=== PATIENT | female | born 1990 | race Caucasian/White ===

== ENCOUNTER 2016-12-16 17:58 | Emergency (ER) | payer OTHER ==
[2016-12-16 18:15] VITALS: BP 114/73; PULSE 81; TEMP 98.4; BMI 20.1
--- NOTE | 2016-12-16 18:47 | PDOC ---
History of Present Illness - General Chief Complaint: Pain Stated Complaint: LT ARM PAIN Time Seen by Provider: 12/16/16 18:21 History Source: Patient - History of Present Illness Timing/Duration: other Associated Symptoms: denies: fever/chills Past History - Past Medical History Allergies/Adverse Reactions: Allergies Allergy/AdvReac Type Severity Reaction Status Date / Time No Known Allergies Allergy Verified 12/16/16 18:10 Home Medications: Ambulatory Orders NK [No Known Home Medication] 10/22/16 Asthma: No Cancer: No Cardiac Disorders: No Diabetes: No HTN: No Seizures: No Thyroid Disease: No Other medical history: DENIES. - Immunization History Immunization Up to Date: No - Psycho/Social/Smoking Cessation Hx Anxiety: No Suicidal Ideation: No Smoking History: Never smoked Hx Alcohol Use: No Drug/Substance Use Hx: No Hx Substance Use Treatment: No Review of Systems - Review of Systems Constitutional: No: Fever *Physical Exam - Vital Signs Last Vital Signs Temp Pulse Resp BP Pulse Ox 98.4 F 81 19 114/73 98 12/16/16 18:10 12/16/16 18:10 12/16/16 18:10 12/16/16 18:10 12/16/16 18:10 - Physical Exam General Appearance: Yes: Appropriately Dressed. No: Apparent Distress HEENT: positive: Normal Voice Neck: positive: Supple Respiratory/Chest: negative: Respiratory Distress Extremity: positive: Other (fb c/w implanon to L arm w/ ttp to site, no redness or swelling) Integumentary: positive: Dry, Warm Neurologic: positive: Fully Oriented, Alert, Normal Mood/Affect Medical Decision Making - Medical Decision Making 12/16/16 18:47 26 yo F, status post implement to left arm 2 years ago at [facility], now here for removal secondary to arm pain to site of control. No swelling , redness, fever or chills. Patient well-appearing with palpable foreign body to left arm consistent with implanon. Has ttp to site w/ no s/o infxn. Will discharge to f/u with heater engineer helper for further eval and possible removal of control 12/16/16 18:50 *DC/Admit/Observation/Transfer Diagnosis at time of Disposition: Arm pain Qualifiers: Laterality: left Qualified Code(s): M79.602 - Pain in left arm - Discharge Dispostion Disposition: HOME Condition at time of disposition: Good - Patient Instructions Additional Instructions: Please follow with your COMMUNICATION ARTS LECTURER for further evaluation
== END 2016-12-16 18:52 | disposition home or self-care (01) ==
LOC: JERFT 17:58
DX: M79.602 Pain in left arm (principal)
CPT/HCPCS: 99281-25

== ENCOUNTER 2016-12-28 19:09 | Emergency (ER) | payer OTHER ==
[2016-12-28 19:17] VITALS: BP 107/64; PULSE 70; TEMP 98.4; BMI 19.9
[2016-12-28] MEDS ORDERED: SODIUM CHLORIDE 1,000 ML IV STA (20:11)
--- NOTE | 2016-12-28 20:11 | PDOC ---
History of Present Illness - General Chief Complaint: Nausea/Vomiting Stated Complaint: NAUSEA/VOMITING Time Seen by Provider: 12/28/16 19:52 History Source: Patient Exam Limitations: No Limitations - History of Present Illness Initial Comments: CHIEF COMPLAINT: 26 y/o afebrile female with no significant PMH c/o nausea and vomiting for the past 3 days. HISTORY OF PRESENT ILLNESS: She also admits to fever for the first 2 days, which has resolved today. She also has a headache, which she states has gotten worse the more she's vomited. She has taken tylenol, ibuprofen and excedrin for her headache with little relief. She denies neck pain, changes in vision/ hearing, cough, runny nose, CP, SOB, abd pain, back pain, hematuria, dysuria. She did receive the flu vaccine this year. Vital signs on arrival are within normal limits. REVIEW OF SYSTEMS: GENERAL/CONSTITUTIONAL: +fever - resolved. No weakness. No weight change. HEAD, EYES, EARS, NOSE AND THROAT: No change in vision. No ear pain or discharge. No sore throat. CARDIOVASCULAR: No chest pain or shortness of breath. RESPIRATORY: No cough, wheezing, or hemoptysis. GASTROINTESTINAL: +nausea and vomiting. No abd pain, diarrhea, constipation. GENITOURINARY: No dysuria, frequency, or change in urination. MUSCULOSKELETAL: No joint or muscle swelling or pain. No neck or back pain. SKIN: No rash or easy bruising. NEUROLOGIC: +headache. No vertigo, loss of consciousness, or loss of sensation. PHYSICAL EXAM: GENERAL: The patient is awake, alert, and fully oriented, in no acute distress. SHe is non toxic but ill appearing. HEAD: Normal with no signs of trauma. ENT: Pupils equal, round and reactive to light, extraocular movements intact, sclera anicteric, conjunctiva clear. Neck supple. Eyes sunken in. Mucous membranes moist. LUNGS: Clear to auscultation bilaterally. Normal excursion. No respiratory distress or use of accessory muscles. CV: RRR, S1/S2, no MRG. Cap refill < 2 sec. ABDOMEN: Soft, non-distended, non-tender even to deep palpation, no hepatomegaly or splenomegaly, no masses. EXTREMITIES: Normal range of motion, no edema. NEUROLOGICAL: Normal speech, normal gait. CN II-XII grossly intact. PSYCH: Normal mood, normal affect. SKIN: Warm, dry, normal turgor, no rashes or lesions noted. Past History - Past Medical History Allergies/Adverse Reactions: Allergies Allergy/AdvReac Type Severity Reaction Status Date / Time No Known Allergies Allergy Verified 12/28/16 19:14 Home Medications: Ambulatory Orders Ondansetron [Zofran Odt -] 4 mg SL TID #8 od.tablet 12/28/16 Asthma: No Cancer: No Cardiac Disorders: No Diabetes: No HTN: No Seizures: No Thyroid Disease: No - Immunization History Immunization Up to Date: No - Psycho/Social/Smoking Cessation Hx Anxiety: No Suicidal Ideation: No Smoking History: Never smoked Number of Cigarettes Smoked Daily: 0 Information on smoking cessation initiated: No Hx Alcohol Use: No Drug/Substance Use Hx: No Hx Substance Use Treatment: No *Physical Exam - Vital Signs Last Vital Signs Temp Pulse Resp BP Pulse Ox 98.4 F 70 12 107/64 98 12/28/16 19:15 12/28/16 19:15 12/28/16 19:15 12/28/16 19:15 12/28/16 19:15 Medical Decision Making - Medical Decision Making A/P: 26 y/o female with GI virus. Headache most likely secondary to dehydration. Plan is as follows: 1. IV fluids 2. UA/hcg hcg - negative The patient states she feels much better with decrease in headache since getting fluids and nausea is gone. Will d/c to home with rx for zofran. Suggested she take tomorrow off and rehydrate. Instructed her to f/u with her PCP within 1 week and return to the ER with any worsening or concerning symptoms. The patient verbalizes understanding of all instructions, has no further questions and is awaiting discharge. *DC/Admit/Observation/Transfer Diagnosis at time of Disposition: Nausea and vomiting Qualifiers: Vomiting type: unspecified Vomiting Intractability: non-intractable Qualified Code(s): R11.2 - Nausea with vomiting, unspecified - Discharge Dispostion Disposition: HOME Condition at time of disposition: Improved - Prescriptions Prescriptions: Ondansetron [Zofran Odt -] 4 mg SL TID #8 od.tablet - Referrals Referrals: Antonietta Menendez [Primary Care Provider] - Call tomorrow - Patient Instructions Printed Discharge Instructions: DI for Viral Gastroenteritis -- Adult, Gastroenteritis Diet Additional Instructions: Discharge Instructions: -Take zofran as directed if needed for nausea/vomiting -Get lots of rest and drink plenty of fluids -Follow up with your doctor within 1 week if no improvement in symptoms -Return to the ER with any worsening or concerning symptoms. - Post Discharge Activity Work/School Note: Back to Work
[2016-12-28 20:23] LABS: URINE APPEARANCE SLCLOUDY; URINE BILIRUBIN NEGATIVE (NEGATIVE); URINE BLOOD NEGATIVE (NEGATIVE); URINE COLOR YELLOW; URINE GLUCOSE (UA) NEGATIVE (NEGATIVE); URINE KETONE 1+ (NEGATIVE); URINE LEUK ESTERASE NEGATIVE (NEGATIVE); URINE NITRITE NEGATIVE (NEGATIVE); URINE PROTEIN NEGATIVE (NEGATIVE); URINE UROBILINOGEN 2.0 E.U/dl E.U./dl (0.2-1.0)
[2016-12-28] MEDS ORDERED: ONDANSETRON 4 MG/2 ML VIAL IVPUSH ONE (20:54)
[2016-12-28] MEDS ORDERED: FAMOTIDINE 20 MG/50 ML IVPB 50 ML IVPB ONE ×2 (20:54→21:03)
[2016-12-28] MEDS ORDERED: ONDANSETRON *ODT* 4 MG TABLET ONE (21:03)
== END 2016-12-28 22:25 | disposition home or self-care (01) ==
LOC: JERFT 19:09
PROC: 3E033GC Introduction of Other Therapeutic Substance into Peripheral Vein, Percutaneous Approach (ICD-10-PCS; principal; 2016-12-28)
PROC: 3E0337Z Introduction of Electrolytic and Water Balance Substance into Peripheral Vein, Percutaneous Approach (ICD-10-PCS; 2016-12-28)
DX: R11.2 Nausea with vomiting, unspecified (principal)
CPT/HCPCS: 81003; 84703; 96361; 96365; 96375; 99281-25

== ENCOUNTER 2016-12-30 02:14 | Emergency (ER) | payer OTHER ==
[2016-12-30 02:36] VITALS: BP 106/56; PULSE 78; TEMP 98.4; BMI 20.1
[2016-12-30] MEDS ORDERED: SODIUM CHLORIDE 1,000 ML IV STA (03:35)
[2016-12-30] MEDS ORDERED: METOCLOPRAMIDE HCL INJECTION 10 MG/2 ML VIAL IVPB ONE (03:35)
[2016-12-30] MEDS ORDERED: morphine CARPU-JECT 4 MG/1 ML DISP.SYRIN IVPUSH ONE (03:35)
--- NOTE | 2016-12-30 03:36 | PDOC ---
History of Present Illness - General Chief Complaint: Nausea/Vomiting Stated Complaint: VOMITING Time Seen by Provider: 12/30/16 03:03 History Source: Patient Exam Limitations: No Limitations - History of Present Illness Initial Comments: 12/30/16 04:11 26yo Female patient presents to ED c/o persistent headache with nausea and vomiting. Patient was last seen in this ED 12-28-2016 and d/c'd home with zofran. Patient report pain has intensified and she is unable to take Zofran because of vomiting. She denies head injury, fall, trauma, , fever, CP, Abd pain, Diarrhea, or any other complaints at this time. Timing/Duration: reports: 1 week Severity: Yes: moderate Associated Symptoms: reports: nausea/vomiting, other (Headache). denies: denies symptoms, confusion, fatigue, fever/chills, insomnia, loss of consciousness, muscle spasms, numbness in legs/feet, paresthesia, ringing in ears, seizures, sleepy, slurred speech, tingling in legs/feet, trouble walking, vision changes, weakness Past History - Travel Traveled outside of the country in the last 30 days: No Close contact w/someone who was outside of country & ill: No - Past Medical History Allergies/Adverse Reactions: Allergies Allergy/AdvReac Type Severity Reaction Status Date / Time No Known Allergies Allergy Verified 12/30/16 02:29 Home Medications: Ambulatory Orders Ondansetron [Zofran Odt -] 4 mg SL TID #8 od.tablet 12/28/16 Butalbit/Acetamin/Caff/Codeine [Fioricet-Cod 84-151-82-30 Cap] 1 - 2 cap PO Q6H PRN #32 capsule MDD 6 CAP 12/30/16 Asthma: No Cancer: No Cardiac Disorders: No Diabetes: No HTN: No Seizures: No Thyroid Disease: No Other medical history: denies - Immunization History Immunization Up to Date: No - Psycho/Social/Smoking Cessation Hx Anxiety: No Suicidal Ideation: No Smoking History: Never smoked Number of Cigarettes Smoked Daily: 0 Hx Alcohol Use: No Drug/Substance Use Hx: No Hx Substance Use Treatment: No Neuro Specific PMHX - Complaint Specific PMHX Glaucoma: No Herniated Disk: No Laminectomy: No Migraine: No Multiple Sclerosis: No Neuropathy: No TIA: No Review of Systems - Review of Systems Able to Perform ROS?: Yes Is the patient limited Polish proficient: No Constitutional: No: Chills, Fever HEENTM: No: Blurred Vision, Double Vision, Nose Congestion, Difficulty Swallowing Respiratory: No: Cough, Orthopnea, Shortness of Breath, Stridor, Wheezing Cardiac (ROS): No: Chest Pain, Lightheadedness, Palpitations, Syncope, Chest Tightness ABD/GI: Yes: Nausea, Vomiting. No: Constipated, Diarrhea, Poor Appetite, Poor Fluid Intake, Abdominal cramping : No: Burning, Dysuria, Discharge, Frequency, Flank Pain, Hematuria, Pain, Urgency Musculoskeletal: No: Back Pain, Joint Pain, Muscle Weakness, Neck Pain Integumentary: No: Bruising, Erythema, Rash Neurological: Yes: Headache. No: Numbness, Paresthesia, Seizure, Tingling, Tremors, Weakness, Unsteady Gait, Ataxia, Dizziness All Other Systems: Reviewed and Negative *Physical Exam - Vital Signs Last Vital Signs Temp Pulse Resp BP Pulse Ox 98.4 F 78 18 106/56 99 12/30/16 02:30 12/30/16 02:30 12/30/16 02:30 12/30/16 02:30 12/30/16 02:30 - Physical Exam General Appearance: Yes: Nourished, Appropriately Dressed, Mild Distress. No: Apparent Distress, Moderate Distress, Severe Distress HEENT: positive: EOMI, RAMIRO, Normal ENT Inspection, Normal Voice, Symmetrical, TMs Normal, Pharynx Normal. negative: Tonsillar Exudate, Tonsillar Erythema, Nasal Congestion, Rhinorrhea, TM Bulging, TM Dull, TM Erythema Neck: positive: Trachea midline, Supple. negative: Decreased range of motion, Stridor, Lymphadenopathy (R), Lymphadenopathy (L) Respiratory/Chest: positive: Lungs Clear, Normal Breath Sounds. negative: Respiratory Distress, Accessory Muscle Use, Labored Respiration, Rapid RR, Stridor, Wheezing Cardiovascular: positive: Regular Rhythm, Regular Rate Gastrointestinal/Abdominal: positive: Normal Bowel Sounds, Soft. negative: Distended, Guarding, Rebound, Tenderness Musculoskeletal: positive: Normal Inspection. negative: CVA Tenderness Extremity: positive: Normal Capillary Refill, Normal Inspection, Normal Range of Motion. negative: Tender, Pedal Edema, Swelling Integumentary: positive: Normal Color, Dry, Warm. negative: Rash, Swelling Neurologic: positive: detail manager II-XII NML intact, Fully Oriented, Alert, Normal Mood/ Affect, Normal Response, Motor Strength 5/5 *DC/Admit/Observation/Transfer Diagnosis at time of Disposition: Migraine Qualifiers: Migraine type: without aura Status migrainosus presence: without status migrainosus Intractability: not intractable Qualified Code(s): G43.009 - Migraine without aura, not intractable, without status migrainosus - Discharge Dispostion Disposition: HOME Condition at time of disposition: Improved Admit: No - Prescriptions Prescriptions: Butalbit/Acetamin/Caff/Codeine [Fioricet-Cod 65-236-75-30 Cap] 1 - 2 cap PO Q6H PRN #32 capsule MDD 6 CAP PRN Reason: MIGRAINES - Patient Instructions Printed Discharge Instructions: Migraine -- Adult Additional Instructions: FOLLOW UP WITH YOUR PRIMARY CARE PROVIDER. CALL TO SCHEDULE APPOINTMENT. TAKE MEDICATIONS PRESCRIBED. DRINK LOTS OF WATER AND REST. DO NOT DRIVE, DRINK ALCOHOL, OR OPERATE HEAVY MACHINERY WHILE TAKING FIORICET. CONTINUE PREVIOUS MEDICATIONS PRESCRIBED. Print Language: HUNGARIAN - Post Discharge Activity Work/School Note: Back to Work
[2016-12-30] MEDS ORDERED: morphine CARPU-JECT 4 MG/1 ML DISP.SYRIN ONE (03:53)
[2016-12-30] MEDS ORDERED: METOCLOPRAMIDE HCL INJECTION 10 MG/2 ML VIAL ONE (03:53)
--- NOTE | 2016-12-30 04:15 | PDOC ---
*Physical Exam - Vital Signs Last Vital Signs Temp Pulse Resp BP Pulse Ox 98.4 F 78 18 106/56 99 12/30/16 02:30 12/30/16 02:30 12/30/16 02:30 12/30/16 02:30 12/30/16 02:30 ED Treatment Course - Medications Given in the ED: ED Medications Discontinued Medications Generic Name Dose Route Start Last Admin Trade Name Freq PRN Reason Stop Dose Admin Metoclopramide HCl 10 mg 12/30/16 03:35 12/30/16 03:55 Reglan Injection - IVPB 12/30/16 03:36 10 mg ONCE ONE Administration Morphine Sulfate 4 mg 12/30/16 03:35 12/30/16 03:59 Morphine Injection - IVPUSH 12/30/16 03:36 4 mg ONCE ONE Administration Medical Decision Making - Medical Decision Making 12/30/16 04:14 agree with care from REGISTERED PUBLIC SURVEYOR Qamar *DC/Admit/Observation/Transfer Diagnosis at time of Disposition: Migraine - Discharge Dispostion Disposition: HOME Condition at time of disposition: Improved - Prescriptions Prescriptions: Butalbit/Acetamin/Caff/Codeine [Fioricet-Cod 36-430-56-30 Cap] 1 - 2 cap PO Q6H PRN #32 capsule MDD 6 CAP PRN Reason: MIGRAINES - Referrals Referrals: Antonietta Menendez [Primary Care Provider] - - Patient Instructions Printed Discharge Instructions: Migraine -- Adult Additional Instructions: FOLLOW UP WITH YOUR PRIMARY CARE PROVIDER. CALL TO SCHEDULE APPOINTMENT. TAKE MEDICATIONS PRESCRIBED. DRINK LOTS OF WATER AND REST. DO NOT DRIVE, DRINK ALCOHOL, OR OPERATE HEAVY MACHINERY WHILE TAKING FIORICET. CONTINUE PREVIOUS MEDICATIONS PRESCRIBED. Print Language: LAO - Post Discharge Activity Work/School Note: Back to Work
[2016-12-30 04:20] LABS: URINE APPEARANCE CLEAR; URINE BILIRUBIN NEGATIVE (NEGATIVE); URINE BLOOD NEGATIVE (NEGATIVE); URINE COLOR YELLOW; URINE GLUCOSE (UA) NEGATIVE (NEGATIVE); URINE KETONE NEGATIVE (NEGATIVE); URINE LEUK ESTERASE NEGATIVE (NEGATIVE); URINE NITRITE NEGATIVE (NEGATIVE); URINE PROTEIN NEGATIVE (NEGATIVE); URINE UROBILINOGEN 4.0 E.U/dl E.U./dl (0.2-1.0)
[2016-12-30] MEDS ORDERED: methylPREDNISolone NA SUCC 125 MG/2 ML VIAL IVPB ONE (05:54)
[2016-12-30] MEDS ORDERED: methylPREDNISolone NA SUCC 125 MG/2 ML VIAL ONE (06:01)
[2016-12-30] MEDS ORDERED: ACETAMINOPHEN/CAFFEINE/BUTALBITAL 1 TAB ONE (06:17)
[2016-12-30] MEDS ORDERED: ACETAMINOPHEN/CAFFEINE/BUTALBITAL 1 TAB PO ONE (06:21)
== END 2016-12-30 06:24 | disposition home or self-care (01) ==
LOC: JER 02:14
PROC: 3E033GC Introduction of Other Therapeutic Substance into Peripheral Vein, Percutaneous Approach (ICD-10-PCS; principal; 2016-12-30)
PROC: 3E033NZ Introduction of Analgesics, Hypnotics, Sedatives into Peripheral Vein, Percutaneous Approach (ICD-10-PCS; 2016-12-30)
PROC: 3E0337Z Introduction of Electrolytic and Water Balance Substance into Peripheral Vein, Percutaneous Approach (ICD-10-PCS; 2016-12-30)
DX: G43.009 Migraine without aura, not intractable, without status migrainosus (principal)
CPT/HCPCS: 70450-TC; 81003; 84703; 99281-25

== ENCOUNTER 2017-12-12 17:00 | Emergency (ER) | payer OTHER ==
[2017-12-12 17:13] VITALS: BP 129/63; PULSE 100; TEMP 99.2; BMI 20.5
--- NOTE | 2017-12-12 17:14 | PDOC ---
Rapid Medical Evaluation Time Seen by Provider: 12/12/17 17:09 Medical Evaluation: Allergies Allergy/AdvReac Type Severity Reaction Status Date / Time No Known Allergies Allergy Verified 12/12/17 17:09 12/12/17 17:09 The patient presents with a chief complaint of: [LLQ pain, vaginal bleeding. LMP 12/04/17, not normal as per patient. Denies urinary symptoms. H/O cysts, pain is the same. ] I have performed a brief in-person evaluation of this patient. Pertinent physical exam findings: vss, [Lungs clear, RRR, Pain to the LLQ, Pain to the left lower back, No CVA tenderness. ] I have ordered the following: [Labs, Beta HCG, UA, Urine culture, ] The patient will proceed to the ED for further evaluation.
[2017-12-12 17:51] LABS: BASO % 0.3 % (0-2.0); EOS % 0.2 % (0-4.5); HEMATOCRIT 39.6 % (32.4-45.2); HEMOGLOBIN 13.6 GM/dL (10.7-15.3); LYMPH % 18.4 % (8-40); MCH 32.5 pg (25.7-33.7); MCHC 34.4 g/dl (32.0-36.0); MEAN CELL VOLUME 94.5 fl (80-96); MEAN PLT VOLUME 8.3 fl (7.5-11.1); MONO % 5.5 % (3.8-10.2); NEUT % 75.6 % (42.8-82.8); PLATELET COUNT 199 K/MM3 (134-434); RBC 4.19 M/mm3 (3.60-5.2); RDW 12.6 % (11.6-15.6); WHITE BLOOD COUNT 8.7 K/mm3 (4.0-10.0)
[2017-12-12 17:53] LABS: URINE APPEARANCE CLEAR; URINE BILIRUBIN NEGATIVE (NEGATIVE); URINE BLOOD 1+ (NEGATIVE); URINE COLOR YELLOW; URINE GLUCOSE (UA) NEGATIVE (NEGATIVE); URINE KETONE NEGATIVE (NEGATIVE); URINE LEUK ESTERASE NEGATIVE (NEGATIVE); URINE NITRITE NEGATIVE (NEGATIVE); URINE PROTEIN NEGATIVE (NEGATIVE); URINE UROBILINOGEN NEGATIVE mg/dL (0.2-1.0)
[2017-12-12 18:03] LABS: EPI CELLS RARE /HPF (FEW); URINE MUCUS RARE
[2017-12-12 18:12] LABS: ALBUMIN 4.2 g/dl (3.4-5.0); ANION GAP 9 (8-16); BILIRUBIN,TOTAL 1.6 mg/dL (0.2-1.0); BLOOD UREA NITROGEN 12 mg/dL (7-18); CALCIUM 9.3 mg/dL (8.5-10.1); CHLORIDE 99 mmol/L (98-107); CO2 29 mmol/L (21-32); CREATININE 0.6 mg/dL (0.55-1.02); GLUCOSE,RANDOM 86 mg/dL (74-106); POTASSIUM 3.7 mmol/L (3.5-5.1); SGOT/AST 16 U/L (15-37); SGPT/ALT 32 U/L (12-78); SODIUM 137 mmol/L (136-145); TOT PROT 7.9 g/dl (6.4-8.2)
[2017-12-12 18:14] LABS: ALK PHOS 46 U/L (45-117)
== END 2017-12-12 22:07 | disposition left against medical advice (07) ==
LOC: JER 17:00
DX: Z53.21 Procedure and treatment not carried out due to patient leaving prior to being seen by health care provider (principal)
CPT/HCPCS: 36415; 80053; 81003; 81015; 84702; 85025; 87086; 99281-25

== ENCOUNTER 2018-11-28 03:10 | Inpatient (IN) | payer OTHER ==
[2018-11-28] MEDS ORDERED: DEXTROSE 5%-LACTATED RINGERS 1,000 ML IV SCH (04:15)
[2018-11-28 04:27] LABS: BASO % 0.2 % (0-2.0); EOS % 0.2 % (0-4.5); HEMATOCRIT 34.4 % (32.4-45.2); HEMOGLOBIN 12.3 GM/dL (10.7-15.3); LYMPH % 35.9 % (8-40); MCH 33.8 pg (25.7-33.7); MCHC 35.7 g/dl (32.0-36.0); MEAN CELL VOLUME 94.6 fl (80-96); MEAN PLT VOLUME 9.4 fl (7.5-11.1); MONO % 4.4 % (3.8-10.2); NEUT % 59.3 % (42.8-82.8); PLATELET COUNT 162 K/MM3 (134-434); RBC 3.64 M/mm3 (3.60-5.2); WHITE BLOOD COUNT 6.6 K/mm3 (4.0-10.0)
[2018-11-28 04:37] VITALS: BMI 23.2
[2018-11-28 04:40] LABS: INR 0.89 (0.83-1.09); PROTHROMBIN TIME (PATIENT) 10.5 SEC (9.7-13.0)
[2018-11-28 04:43] LABS: ACTIVATED PTT 24.6 SECONDS (25.2-36.5)
[2018-11-28 04:46] LABS: ANION GAP 8 MMOL/L (8-16); BLOOD UREA NITROGEN 10 mg/dL (7-18); CALCIUM 9.1 mg/dL (8.5-10.1); CHLORIDE 104 mmol/L (98-107); CO2 26 mmol/L (21-32); CREATININE 0.8 mg/dL (0.55-1.3); GLUCOSE,RANDOM 122 mg/dL (74-106); POTASSIUM 4.1 mmol/L (3.5-5.1); SODIUM 137 mmol/L (136-145)
[2018-11-28] MEDS ORDERED: BUTORPHANOL TARTRATE 1 MG/ML VIAL ONE (05:25)
[2018-11-28] MEDS ORDERED: PROMETHAZINE HCL 25 MG/1 ML VIAL ONE (05:25)
[2018-11-28] MEDS ORDERED: PROMETHAZINE HCL 25 MG/1 ML VIAL IVPB ONE (05:45)
[2018-11-28] MEDS ORDERED: BUTORPHANOL TARTRATE 2 MG/ML VIAL IVPB ONE (05:45)
--- NOTE | 2018-11-28 06:34 | HP ---
Past Medical History - Admission Chief Complaint: Labor pain History of Present Illness: 28 yo @ 38 weeks gestation, EDC 12/06/18, admitted for labor pain. History Source: Patient Limitations to Obtaining History: No Limitations - Past Medical History ...: 3 ...Para: 2 ...Term: 0 ...: 2 ...Spon : 0 ...Induced : 0 ...Multiple Gestation: 0 ...LMP: 03/01/18 ... Weeks Gestation by Dates: 38.6 ...EDC by Dates: 12/06/18 ...EDC by Sono: 12/06/18 - Past Surgical History Past Surgical History: Yes: None Hx Myomectomy: No Hx Transabdominal Cerclage: No - Smoking History Smoking history: Never smoked Have you smoked in the past 12 months: No Aproximately how many cigarettes per day: 0 - Alcohol/Substance Use Hx Alcohol Use: No - Social History Usual Living Arrangement: Yes: With Significant Other History of Recent Travel: No Home Medications - Allergies Allergies/Adverse Reactions: Allergies Allergy/AdvReac Type Severity Reaction Status Date / Time No Known Allergies Allergy Verified 11/28/18 04:01 - Home Medications Home Medications: Ambulatory Orders Ferrous Sulfate [Iron] 325 mg PO DAILY 09/18/18 Pnv No.95/Ferrous Fum/Folic AC [ Formula] 1 each PO DAILY 09/18/18 Family Disease History - Family Disease History Family History: Unremarkable Review of Systems - Review of Systems Constitutional: reports: No Symptoms Eyes: reports: No Symptoms HENT: reports: No Symptoms Neck: reports: No Symptoms Cardiovascular: reports: No Symptoms Respiratory: reports: No Symptoms Gastrointestinal: reports: No Symptoms Genitourinary: reports: Pain Breasts: reports: No Symptoms Reported Musculoskeletal: reports: No Symptoms Integumentary: reports: No Symptoms Neurological: reports: No Symptoms Endocrine: reports: No Symptoms Hematology/Lymphatic: reports: No Symptoms Psychiatric: reports: No Symptoms Pain Intensity: 7 Physical Exam - Maternity Vital Signs: Vital Signs Temperature 98.6 F 11/28/18 06:00 Pulse Rate 85 11/28/18 06:00 Respiratory Rate 20 11/28/18 06:00 Blood Pressure 118/70 11/28/18 06:00 O2 Sat by Pulse Oximetry (%) Constitutional: Yes: Well Nourished Eyes: Yes: Conjunctiva Clear HENT: Yes: Atraumatic Neck: Yes: Supple Cardiovascular: Yes: Regular Rate and Rhythm Lungs: Clear to auscultation - Abdominal Exam/OB Number of Fetuses: Single Presentation: Vertex - Vaginal Exam/OB Speculum Exam: No Dilatation (cm): 3 Effacement (%): 80 Amniotic Membrane Status: Intact Presentation: Vertex/Position Station: -2 - Physical Exam Musculoskeletal: Yes: WNL Extremities: Yes: WNL ...Motor Strength: WNL Psychiatric: Yes: Alert, Oriented - Labs Lab Results: CBC, BMP 11/28/18 04:15 11/28/18 04:15 Problem List - Problems (1) Pain during labor Code(s): O99.89 - OTH DISEASES AND CONDITIONS COMPL PREG/CHLDBRTH; R52 - PAIN, UNSPECIFIED Assessment/Plan Active labor Admit to L&D Analgesia as needed Anticipate
[2018-11-28] MEDS ORDERED: OXYTOCIN 20 UNITS in 0.9% NS 20 UNIT/1,000 ML INFUS.BAG IV ONE ×2 (07:22→09:23)
[2018-11-28] MEDS ORDERED: LIDOCAINE HCL 1% PRESERVATIVE FREE - 30ML VIAL ONE (07:23)
[2018-11-28] MEDS ORDERED: WITCH HAZEL 50% (TUCKS) 40 PAD/JAR PAD TP PRN (08:03)
[2018-11-28] MEDS ORDERED: BENZOCAINE 28 GM HEMORRHOIDAL OINTMENT TP PRN (08:03)
[2018-11-28] MEDS ORDERED: BISACODYL 10 MG SUPP.RECT RC PRN (08:03)
[2018-11-28] MEDS ORDERED: METHYLERGONOVINE MALEATE 0.2 MG/1 ML AMP IM PRN (08:03)
[2018-11-28] MEDS ORDERED: BENZOCAINE 20% 57 GM BOTTLE TP PRN (08:03)
--- NOTE | 2018-11-28 08:07 | PN ---
Delivery - Delivery Vaginal Delivery: Spontaneous Episiotomy/Laceration: None EBL (cc): 300 Delivery, Single - Feeding Plan Initial Plan: Elected not to breastfeed exclusively throughout hospitalization Remarks - Remarks Remarks: Normal spontaneous vaginal delivery of a live infant boy over intact perineum. Nose / Oropharynx suctioned @ perineum. Cord clamped and cut. Placenta expelled spontaneously intact. Baby handed to nurse. Mother in stable condition
[2018-11-28] MEDS: OXYTOCIN 20 UNITS in 0.9% NS 20 UNIT/1,000 ML INFUS.BAG IV SCH (09:25)
[2018-11-28] MEDS: DEXTROSE 5%-LACTATED RINGERS 1,000 ML IV SCH (09:27)
[2018-11-28] MEDS ORDERED: ACETAMINOPHEN 325 MG TABLET (FP) ONE (09:33)
[2018-11-28] MEDS ORDERED: IBUPROFEN 600 MG TABLET (FP) PO ONE (09:33)
[2018-11-28] MEDS: ACETAMINOPHEN 325 MG TABLET (FP) PO PRN ×3 (09:35→22:14)
[2018-11-28] MEDS: IBUPROFEN 600 MG TABLET (FP) PO PRN ×3 (09:35→22:14)
[2018-11-28] MEDS: PRENATAL VITAMINS W/ FOLIC ACID TABLET (FP) PO SCH (11:00)
[2018-11-28] MEDS: FERROUS SO4 325 MG TABLET (FP) PO SCH ×2 (11:00→22:14)
[2018-11-29] MEDS: IBUPROFEN 600 MG TABLET (FP) PO PRN ×3 (02:14→21:43)
[2018-11-29] MEDS: ACETAMINOPHEN 325 MG TABLET (FP) PO PRN ×3 (02:14→21:44)
[2018-11-29 07:38] LABS: BASO % 0.4 % (0-2.0); EOS % 0.3 % (0-4.5); HEMATOCRIT 33.1 % (32.4-45.2); HEMOGLOBIN 10.9 GM/dL (10.7-15.3); LYMPH % 42.4 % (8-40); MCHC 32.9 g/dl (32.0-36.0); MEAN CELL VOLUME 97.2 fl (80-96); MEAN PLT VOLUME 9.3 fl (7.5-11.1); MONO % 4.2 % (3.8-10.2); NEUT % 52.7 % (42.8-82.8); PLATELET COUNT 146 K/MM3 (134-434); RBC 3.41 M/mm3 (3.60-5.2); RDW 13.1 % (11.6-15.6); WHITE BLOOD COUNT 7.5 K/mm3 (4.0-10.0)
[2018-11-29] MEDS: PRENATAL VITAMINS W/ FOLIC ACID TABLET (FP) PO SCH (09:24)
[2018-11-29] MEDS: FERROUS SO4 325 MG TABLET (FP) PO SCH ×2 (09:24→21:43)
--- NOTE | 2018-11-29 09:37 | PN ---
Post Progress Note - Subjective Subjective: no complains Post Day: 1 Type of Delivery: Vital Signs: Vital Signs Temperature 97.8 F 11/29/18 08:06 Pulse Rate 70 11/29/18 08:06 Respiratory Rate 18 11/29/18 08:06 Blood Pressure 101/16 L 11/29/18 08:06 O2 Sat by Pulse Oximetry (%) 97 11/28/18 08:55 Selected Entries 11/28/18 11/28/18 11/29/18 17:11 20:28 02:00 Blood Pressure 110/78 102/59 L 101/59 L Breast Exam: Yes: Soft, Other (bf). No: Engorged Uterus: Yes: Fundus Firm, Fundus below umbilicus, Non-tender Lochia: Yes: Rubra Lochia, amount: Moderate Extremities: Yes: Calves non-tender Perineum: Yes: Intact Activity: Ambulating - Labs Labs: CBC WBC 7.5 K/mm3 (4.0-10.0) 11/29/18 06:30 RBC 3.41 M/mm3 (3.60-5.2) L 11/29/18 06:30 Hgb 10.9 GM/dL (10.7-15.3) 11/29/18 06:30 Hct 33.1 % (32.4-45.2) 11/29/18 06:30 MCV 97.2 fl (80-96) H 11/29/18 06:30 MCH 32.0 pg (25.7-33.7) 11/29/18 06:30 MCHC 32.9 g/dl (32.0-36.0) 11/29/18 06:30 RDW 13.1 % (11.6-15.6) 11/29/18 06:30 Plt Count 146 K/MM3 (134-434) 11/29/18 06:30 MPV 9.3 fl (7.5-11.1) 11/29/18 06:30 Absolute Neuts (auto) 3.9 K/mm3 (1.5-8.0) 11/29/18 06:30 Neutrophils % 52.7 % (42.8-82.8) 11/29/18 06:30 Lymphocytes % 42.4 % (8-40) H 11/29/18 06:30 Monocytes % 4.2 % (3.8-10.2) 11/29/18 06:30 Eosinophils % 0.3 % (0-4.5) 11/29/18 06:30 Basophils % 0.4 % (0-2.0) 11/29/18 06:30 Nucleated RBC % 0 % (0-0) 11/29/18 06:30 Problem List - Problems (1) Vaginal delivery Code(s): O80 - ENCOUNTER FOR FULL-TERM UNCOMPLICATED DELIVERY (2) Encounter for care after hospital delivery Code(s): Z39.2 - ENCOUNTER FOR ROUTINE FOLLOW-UP Assessment/Plan stable plan ct pp care discharge tomorrow.
[2018-11-29] MEDS ORDERED: FLU VACCINE QUAD 60 MCG/0.5 ML (MDV 18-19) IM ONE (14:00)
[2018-11-29] MEDS ORDERED: DIPHTH,PERTUSS(ACELL),TET 0.5 ML DISP.SYRIN IM ONE (14:00)
[2018-11-29] MEDS: OXYTOCIN 20 UNITS in 0.9% NS 20 UNIT/1,000 ML INFUS.BAG IV SCH (15:11)
[2018-11-29] MEDS: DEXTROSE 5%-LACTATED RINGERS 1,000 ML IV SCH (15:35)
[2018-11-29] MEDS ORDERED: SENNOSIDES/DOCUSATE COMBO (SENNA PLUS) TABLET (UD) PO PRN (22:00)
[2018-11-30] MEDS: ACETAMINOPHEN 325 MG TABLET (FP) PO PRN (03:12)
[2018-11-30] MEDS: IBUPROFEN 600 MG TABLET (FP) PO PRN (03:12)
--- NOTE | 2018-11-30 09:11 | DS ---
Physical Examination Vital Signs: Vital Signs Temperature 98.7 F 11/29/18 20:59 Pulse Rate 73 11/29/18 20:59 Respiratory Rate 20 11/29/18 20:59 Blood Pressure 107/64 11/29/18 20:59 O2 Sat by Pulse Oximetry (%) 97 11/28/18 08:55 Constitutional: Yes: Well Nourished, No Distress, Calm Eyes: Yes: WNL, Conjunctiva Clear, EOM Intact HENT: Yes: WNL, Atraumatic, Normocephalic Neck: Yes: WNL, Supple, Trachea Midline Cardiovascular: Yes: WNL, Regular Rate and Rhythm Respiratory: Yes: WNL, Regular, CTA Bilaterally Gastrointestinal: Yes: WNL, Normal Bowel Sounds Musculoskeletal: Yes: WNL Extremities: Yes: WNL Edema: No Integumentary: Yes: WNL Neurological: Yes: WNL, Alert, Oriented ...Motor Strength: WNL Psychiatric: Yes: WNL Labs: CBC, BMP 11/29/18 06:30 11/28/18 04:15 Discharge Summary Reason For Visit: ADMIT LABOR Current Active Problems Encounter for care after hospital delivery (Acute) Pain during labor (Acute) Procedures: Principal: Condition: Stable - Instructions Diet, Activity, Other Instructions: Regular Diet Disposition: HOME - Home Medications Comprehensive Discharge Medication List: Ambulatory Orders Ferrous Sulfate [Iron] 325 mg PO DAILY 09/18/18 Pnv No.95/Ferrous Fum/Folic AC [ Formula] 1 each PO DAILY 09/18/18
[2018-11-30] MEDS: PRENATAL VITAMINS W/ FOLIC ACID TABLET (FP) PO SCH (09:55)
[2018-11-30] MEDS: FERROUS SO4 325 MG TABLET (FP) PO SCH (09:55)
[2018-11-30] MEDS ORDERED: ACETAMINOPHEN 325 MG TABLET (FP) ONE (12:36)
[2018-11-30 13:28] VITALS: BP 115/80; PULSE 70; TEMP 98.6
== END 2018-11-30 12:10 | disposition home or self-care (01) | DRG 560 ==
LOC: JLDR 03:10 → UNDOADMIN 03:10 → JLDR 03:40 → J3W 10:10
PROVIDERS: ADMIT Obstetrics & Gynecology; ATTEND Obstetrics & Gynecology
PROC: 10E0XZZ Delivery of Products of Conception, External Approach (ICD-10-PCS; principal; 2018-11-28)
DX: O80 Encounter for full-term uncomplicated delivery (principal); Z3A.38 38 weeks gestation of pregnancy; Z37.0 Single live birth
CPT/HCPCS: 36415; 59409; 80048; 85025; 85610; 85730; 86593; 86850; 86900; 86901; 90715

== ENCOUNTER 2019-08-10 15:57 | Emergency (ER) | payer OTHER ==
--- NOTE | 2019-08-10 16:23 | PDOC ---
Rapid Medical Evaluation Medical Evaluation: Allergies Allergy/AdvReac Type Severity Reaction Status Date / Time No Known Allergies Allergy Verified 11/28/18 04:01 I have performed a brief in-person evaluation of this patient. The patient presents with a chief complaint of: c/o L breast pain x 2 days; denies chest pain; is currently breast feeding her 8 month old baby; denies fever, nipple discharge, changes in skin color Pertinent physical exam findings: Breast exam deferred I have ordered the following: Nothing The patient will proceed to the ED for further evaluation. 08/10/19 16:17
[2019-08-10 16:27] VITALS: BP 101/64; PULSE 92; TEMP 99.2; BMI 21.1
[2019-08-10] MEDS ORDERED: ACETAMINOPHEN 325 MG TABLET (FP) PO ONE (17:13)
--- NOTE | 2019-08-10 17:14 | PDOC ---
History of Present Illness - General Chief Complaint: Pain Stated Complaint: LT BREAST PAIN Time Seen by Provider: 08/10/19 16:17 History Source: Patient Exam Limitations: No Limitations Past History - Travel Traveled outside of the country in the last 30 days: No Close contact w/someone who was outside of country & ill: No - Past Medical History Allergies/Adverse Reactions: Allergies Allergy/AdvReac Type Severity Reaction Status Date / Time No Known Allergies Allergy Verified 08/10/19 16:25 Home Medications: Ambulatory Orders Ferrous Sulfate [Iron] 325 mg PO DAILY 09/18/18 Pnv No.95/Ferrous Fum/Folic AC [ Formula] 1 each PO DAILY 09/18/18 Ibuprofen 600 mg PO Q6H PRN #30 tablet 11/30/18 Asthma: Yes Cancer: No Cardiac Disorders: No COPD: No Diabetes: No HTN: No Seizures: No Thyroid Disease: No - Immunization History Immunization Up to Date: No - Psycho Social/Smoking Cessation Hx Smoking History: Never smoked Have you smoked in the past 12 months: No Number of Cigarettes Smoked Daily: 0 Hx Alcohol Use: No Drug/Substance Use Hx: No Substance Use Type: None Hx Substance Use Treatment: No Review of Systems - Review of Systems Able to Perform ROS?: Yes Comments:: 08/10/19 18:56 CONSTITUTIONAL: Absent: fever, chills, diaphoresis, generalized weakness, malaise, loss of appetite HEENT: Absent: rhinorrhea, nasal congestion, throat pain, throat swelling, difficulty swallowing, mouth swelling, ear pain, eye pain, visual Changes CARDIOVASCULAR: Absent: chest pain, loss of consciousness, palpitations, irregular heart rate, peripheral edema RESPIRATORY: Absent: cough, shortness of breath, dyspnea with exertion, orthopnea, wheezing, stridor, hemoptysis GASTROINTESTINAL: Absent: abdominal pain, abdominal distension, nausea, vomiting, diarrhea, constipation, melena, hematochezia GENITOURINARY: Absent: dysuria, frequency, urgency, hesitancy, hematuria, flank pain, genital pain MUSCULOSKELETAL: Absent: myalgia, arthralgia, joint swelling SKIN: Present: L breast lump Absent: rash, itching, pallor HEMATOLOGIC/IMMUNOLOGIC: Absent: easy bleeding, easy bruising, lymphadenopathy, frequent infections ENDOCRINE: Absent: unexplained weight gain, unexplained weight loss, heat intolerance, cold intolerance NEUROLOGIC: Absent: headache, focal weakness or paresthesias, dizziness, unsteady gait, seizure, mental status changes, bladder or bowel incontinence PSYCHIATRIC: Absent: anxiety, depression, suicidal or homicidal ideation, hallucinations. Is the patient limited Ukrainian proficient: No *Physical Exam - Vital Signs Last Vital Signs Temp Pulse Resp BP Pulse Ox 99.2 F 92 H 16 101/64 98 08/10/19 16:25 08/10/19 16:25 08/10/19 16:25 08/10/19 16:25 08/10/19 16:25 - Physical Exam Comments: 08/10/19 18:57 GENERAL: The patient is awake, alert, and fully oriented, in no acute distress. HEAD: Normal with no signs of trauma. EYES: Pupils equal, round and reactive to light, extraocular movements intact, sclera anicteric, conjunctiva clear. BREAST: No lumps appreciated on breast exam. TTP at the 11 o'clock position. No nipple discharge. No lesions noted. EXTREMITIES: Normal range of motion, no edema. NEUROLOGICAL: Normal speech, normal gait. PSYCH: Normal mood, normal affect. SKIN: Warm, Dry, normal turgor, no rashes or lesions noted. Medical Decision Making - Medical Decision Making 08/10/19 18:58 The patient is a 29-year-old female presents here with 2 days of left breast pain. Patient is currently breast-feeding. She states that she has been breast -feeding less as the baby does not want to latch anymore. She is concerned because she felt a lump in her left breast so she came to the ER for evaluation. Denies fevers, chills, lesions, bloody discharge. A/P: Breast pain On exam no lumps palpated. Tenderness to palpation of the 11 o'clock position Breast ultrasound ordered to rule out abscess/lesion Preliminary read from Dr. Jefferson shows a normal breast. Official read to be done tomorrow by breast radiologist Advised patient to pump to relieve the pain Discharge home with primary care follow-up. I discussed the physical exam findings, ancillary test results and final diagnoses with the patient. I answered all of the patient's questions. The patient was satisfied with the care received and felt comfortable with the discharge plan and treatment plan. The Patient agrees to follow up with the primary care physician/specialist within 24-72 hours. Return precautions were given. *DC/Admit/Observation/Transfer Diagnosis at time of Disposition: Breast pain - Discharge Dispostion Disposition: HOME Condition at time of disposition: Stable Decision to Admit order: No - Referrals Referrals: Roseanne Aguilar [Primary Care Provider] - - Patient Instructions Printed Discharge Instructions: DI for Breast Pain (Mastalgia) Additional Instructions: Your preliminary reading of your ultrasound today showed enlarged milk ducts Try pumping to help your pain The official read of your ultrasound will be ready tomorrow. You may call me tomorrow at [phone] You may take Tylenol as needed for pain. Follow the dosing instruction on the bottle Return to the ER for any new or worsening pain or concerning symptoms - Post Discharge Activity Discharge - Discharge Information Problems reviewed: Yes Clinical Impression/Diagnosis: Breast pain Condition: Stable Disposition: HOME - Follow up/Referral Referrals: Roseanne Aguilar [Primary Care Provider] - - Patient Discharge Instructions Patient Printed Discharge Instructions: DI for Breast Pain (Mastalgia) Additional Instructions: Your preliminary reading of your ultrasound today showed enlarged milk ducts Try pumping to help your pain The official read of your ultrasound will be ready tomorrow. You may call me tomorrow at [phone] You may take Tylenol as needed for pain. Follow the dosing instruction on the bottle Return to the ER for any new or worsening pain or concerning symptoms - Post Discharge Activity
[2019-08-10] MEDS ORDERED: ACETAMINOPHEN 325 MG TABLET (FP) ONE (17:16)
== END 2019-08-10 19:40 | disposition home or self-care (01) ==
LOC: JERFT 15:57
DX: N64.4 Mastodynia (principal)
CPT/HCPCS: 76642-TC-LT; 99281-25

== ENCOUNTER 2021-02-06 14:41 | Emergency (ER) | payer OTHER ==
[2021-02-06 15:02] VITALS: BP 99/55; PULSE 77; TEMP 97.2; BMI 22.2
[2021-02-06] MEDS ORDERED: DEXTROSE 5%-LACTATED RINGERS 500 ML IV SCH (15:30)
[2021-02-06] MEDS ORDERED: DEXTROSE 5%-LACTATED RINGERS 250 ML IV SCH (16:30)
[2021-02-06 17:13] LABS: BASO % 0.2 % (0-2.0); EOS % 0.1 % (0-4.5); HEMATOCRIT 34.2 % (32.4-45.2); HEMOGLOBIN 11.6 GM/dL (10.7-15.3); LYMPH % 29.6 % (8-40); MCH 32.8 pg (25.7-33.7); MCHC 33.8 g/dl (32.0-36.0); MEAN CELL VOLUME 97.1 fl (80-96); MEAN PLT VOLUME 8.3 fl (7.5-11.1); MONO % 4.9 % (3.8-10.2); NEUT % 65.2 % (42.8-82.8); PLATELET COUNT 212 K/MM3 (134-434); RBC 3.52 M/mm3 (3.60-5.2); RDW 13.4 % (11.6-15.6); WHITE BLOOD COUNT 6.1 K/mm3 (4.0-10.0)
[2021-02-06 17:38] LABS: POTASSIUM 3.5 mmol/L (3.5-5.1)
[2021-02-06 17:39] LABS: CALCIUM 9.2 mg/dL (8.5-10.1)
[2021-02-06 17:40] LABS: BLOOD UREA NITROGEN 9.7 mg/dL (7-18)
[2021-02-06 17:43] LABS: CREATININE 0.5 mg/dL (0.55-1.3)
[2021-02-06 19:10] LABS: EPI CELLS 17 /uL (0-25.1); HYALINE CASTS 4 /uL (0-3.1); PH,URINE 5.5 (5.0-8.0); URINE APPEARANCE CLEAR; URINE BACTERIA 75 /uL (0-1359); URINE BILIRUBIN 1+ (NEGATIVE); URINE COLOR DK YELLOW; URINE GLUCOSE (UA) TRACE (NEGATIVE); URINE KETONE 4+ (NEGATIVE); URINE LEUK ESTERASE NEGATIVE (NEGATIVE); URINE NITRITE NEGATIVE (NEGATIVE); URINE PROTEIN 1+ (NEGATIVE); URINE RBC 4 /uL (0-23.9); URINE WBC 15 /uL (0-25.8)
== END 2021-02-06 21:40 | disposition home or self-care (01) ==
LOC: JER 14:41
PROC: 3E013VG Introduction of Insulin into Subcutaneous Tissue, Percutaneous Approach (ICD-10-PCS; principal; 2021-02-06)
PROC: 3E013VG Introduction of Insulin into Subcutaneous Tissue, Percutaneous Approach (ICD-10-PCS; 2021-02-06)
DX: O26.891 Other specified pregnancy related conditions, first trimester (principal); Z3A.33 33 weeks gestation of pregnancy
CPT/HCPCS: 36415; 80048; 81003; 85025; 87077; 87086; 99284-25

== ENCOUNTER 2021-03-18 00:17 | Inpatient (IN) | payer OTHER ==
[2021-03-18 01:37] LABS: BASO % 0.2 % (0-2.0); EOS % 0.5 % (0-4.5); HEMATOCRIT 34.8 % (32.4-45.2); HEMOGLOBIN 11.9 GM/dL (10.7-15.3); LYMPH % 33.7 % (8-40); MCH 32.8 pg (25.7-33.7); MCHC 34.2 g/dl (32.0-36.0); MEAN CELL VOLUME 95.9 fl (80-96); MEAN PLT VOLUME 8.4 fl (7.5-11.1); MONO % 4.1 % (3.8-10.2); NEUT % 61.5 % (42.8-82.8); PLATELET COUNT 206 K/MM3 (134-434); RBC 3.63 M/mm3 (3.60-5.2); RDW 13.3 % (11.6-15.6); WHITE BLOOD COUNT 6.7 K/mm3 (4.0-10.0)
[2021-03-18 01:45] LABS: INR 0.93 (0.83-1.09); PROTHROMBIN TIME (PATIENT) 11.3 SEC (9.7-13.0)
[2021-03-18 01:47] LABS: ACTIVATED PTT 22.8 SECONDS (25.2-36.5)
[2021-03-18 01:56] LABS: CALCIUM 10.3 mg/dL (8.5-10.1)
[2021-03-18 01:58] LABS: BLOOD UREA NITROGEN 12.1 mg/dL (7-18)
[2021-03-18 02:01] LABS: CREATININE 0.6 mg/dL (0.55-1.3)
[2021-03-18 02:06] VITALS: BMI 23.8
[2021-03-18] MEDS ORDERED: BUTORPHANOL TARTRATE 2 MG/ML VIAL ONE (02:14)
[2021-03-18] MEDS ORDERED: PROMETHAZINE HCL 25 MG/1 ML VIAL ONE (02:14)
[2021-03-18] MEDS ORDERED: BUTORPHANOL TARTRATE 1 MG/ML VIAL IVPB ONE (02:26)
[2021-03-18] MEDS ORDERED: PROMETHAZINE HCL 25 MG/1 ML VIAL IVPUSH ONE (02:26)
[2021-03-18] MEDS ORDERED: DEXTROSE 5%-LACTATED RINGERS 1,000 ML IV SCH (02:30)
[2021-03-18] MEDS ORDERED: OXYTOCIN 20 UNITS in 0.9% NS 20 UNIT/1,000 ML INFUS.BAG IV ONE (02:31)
[2021-03-18] MEDS ORDERED: LIDOCAINE HCL 1% PRESERVATIVE FREE - 30ML VIAL ONE (02:31)
[2021-03-18] MEDS ORDERED: METHYLERGONOVINE MALEATE 0.2 MG/1 ML AMP IM PRN (02:47)
[2021-03-18] MEDS ORDERED: BENZOCAINE 28 GM HEMORRHOIDAL OINTMENT TP PRN (02:47)
[2021-03-18] MEDS ORDERED: BENZOCAINE 20% 57 GM BOTTLE TP PRN (02:47)
[2021-03-18] MEDS ORDERED: WITCH HAZEL 50% (TUCKS) 40 PAD/JAR PAD TP PRN (02:47)
[2021-03-18] MEDS ORDERED: BISACODYL 10 MG SUPP.RECT RC PRN (02:47)
[2021-03-18] MEDS ORDERED: OXYTOCIN 20 UNITS in 0.9% NS 20 UNIT/1,000 ML INFUS.BAG IV SCH (03:00)
[2021-03-18 03:33] LABS: HIV INTERPRETATION NEGATIVE (NEGATIVE)
[2021-03-18] MEDS ORDERED: IBUPROFEN 600 MG TABLET (FP) PO ONE (04:14)
[2021-03-18] MEDS ORDERED: ACETAMINOPHEN 325 MG TABLET (FP) ONE (04:14)
[2021-03-18] MEDS: ACETAMINOPHEN 325 MG TABLET (FP) PO PRN ×5 (04:15→22:23)
[2021-03-18] MEDS: IBUPROFEN 600 MG TABLET (FP) PO PRN ×5 (04:15→22:23)
[2021-03-18] MEDS: FERROUS SO4 325 MG TABLET (FP) PO SCH ×2 (08:40→17:00)
[2021-03-18] MEDS: PRENATAL VITAMINS W/ FOLIC ACID TABLET (FP) PO SCH (09:19)
[2021-03-19 07:56] LABS: BASO % 0.2 % (0-2.0); HEMATOCRIT 31.9 % (32.4-45.2); HEMOGLOBIN 10.7 GM/dL (10.7-15.3); LYMPH % 39.1 % (8-40); MCH 32.7 pg (25.7-33.7); MCHC 33.6 g/dl (32.0-36.0); MEAN CELL VOLUME 97.2 fl (80-96); MEAN PLT VOLUME 8.5 fl (7.5-11.1); MONO % 5.9 % (3.8-10.2); NEUT % 53.8 % (42.8-82.8); PLATELET COUNT 194 K/MM3 (134-434); RBC 3.28 M/mm3 (3.60-5.2); RDW 13.7 % (11.6-15.6); WHITE BLOOD COUNT 7.2 K/mm3 (4.0-10.0)
[2021-03-19] MEDS: PRENATAL VITAMINS W/ FOLIC ACID TABLET (FP) PO SCH (09:24)
[2021-03-19] MEDS: FERROUS SO4 325 MG TABLET (FP) PO SCH ×2 (09:24→17:02)
[2021-03-19] MEDS: IBUPROFEN 600 MG TABLET (FP) PO PRN ×2 (09:24→14:41)
[2021-03-19] MEDS: ACETAMINOPHEN 325 MG TABLET (FP) PO PRN ×2 (09:25→14:41)
[2021-03-19 20:37] VITALS: PULSE 76
[2021-03-19] MEDS ORDERED: SENNOSIDES/DOCUSATE COMBO (SENNA PLUS) TABLET (UD) PO PRN (22:00)
[2021-03-20] MEDS: FERROUS SO4 325 MG TABLET (FP) PO SCH (09:15)
[2021-03-20] MEDS: PRENATAL VITAMINS W/ FOLIC ACID TABLET (FP) PO SCH (09:15)
[2021-03-20 12:27] VITALS: BP 110/75; TEMP 98.2
== END 2021-03-20 12:05 | disposition home or self-care (01) | DRG 560 ==
LOC: JDEL 00:17 → JLDR 00:30 → J3W 04:57
PROVIDERS: ADMIT Obstetrics & Gynecology; ATTEND Obstetrics & Gynecology
PROC: 10E0XZZ Delivery of Products of Conception, External Approach (ICD-10-PCS; principal; 2021-03-18)
DX: O48.0 Post-term pregnancy (principal); O42.02 Full-term premature rupture of membranes, onset of labor within 24 hours of rupture; O69.81X0 Labor and delivery complicated by cord around neck, without compression, not applicable or unspecified; Z3A.40 40 weeks gestation of pregnancy; Z37.0 Single live birth
CPT/HCPCS: 36415; 59409; 80048; 85025; 85610; 85730; 86780; 86850; 86900; 86901; 87389; C9803; U0003; U0005

== ENCOUNTER 2022-03-11 08:14 | Emergency (ER) | payer OTHER ==
[2022-03-11 08:27] VITALS: BP 105/62; PULSE 82; TEMP 99.3; BMI 22.6
[2022-03-11 09:12] LABS: EPI CELLS 8 /uL (0-25.1); HYALINE CASTS 0 /uL (0-3.1); URINE APPEARANCE CLEAR; URINE BACTERIA 28 /uL (0-1359); URINE BILIRUBIN NEGATIVE (NEGATIVE); URINE COLOR YELLOW; URINE GLUCOSE (UA) NEGATIVE (NEGATIVE); URINE KETONE NEGATIVE (NEGATIVE); URINE LEUK ESTERASE NEGATIVE (NEGATIVE); URINE NITRITE NEGATIVE (NEGATIVE); URINE PROTEIN NEGATIVE (NEGATIVE); URINE RBC 2 /uL (0-23.9); URINE WBC 3 /uL (0-25.8)
[2022-03-11 09:29] LABS: BASO % 0.5 % (0-2.0); EOS % 0.7 % (0-4.5); HEMATOCRIT 35.8 % (32.4-45.2); HEMOGLOBIN 12.5 GM/dL (10.7-15.3); LYMPH % 22.6 % (8-40); MCH 32.8 pg (25.7-33.7); MCHC 34.8 g/dl (32.0-36.0); MEAN CELL VOLUME 94.3 fl (80-96); MEAN PLT VOLUME 7.6 fl (7.5-11.1); MONO % 5.4 % (3.8-10.2); NEUT % 70.8 % (42.8-82.8); PLATELET COUNT 237 10^3/uL (134-434); RDW 12.7 % (11.6-15.6); WHITE BLOOD COUNT 6.7 K/mm3 (4.0-10.0)
== END 2022-03-11 11:42 | disposition home or self-care (01) ==
LOC: JER 08:14
DX: O20.0 Threatened abortion (principal); N93.9 Abnormal uterine and vaginal bleeding, unspecified; Z3A.10 10 weeks gestation of pregnancy
CPT/HCPCS: 36415; 76817-TC; 81003; 84702; 85025; 86850; 86900; 86901; 87086; 87491; 87591; 99284-25

== ENCOUNTER 2022-03-11 15:32 | Emergency (ER) | payer OTHER ==
[2022-03-11 15:46] VITALS: BMI 22.2
[2022-03-11] MEDS ORDERED: LACTATED RINGERS SOLUTION 1000 ML INFUS.BAG IV ONE (16:43)
[2022-03-11] MEDS ORDERED: ACETAMINOPHEN 1000 MG/100 ML BAG IVPB ONE (16:53)
[2022-03-11 16:56] LABS: BASO % 0.4 % (0-2.0); EOS % 0.4 % (0-4.5); HEMOGLOBIN 12.7 GM/dL (10.7-15.3); LYMPH % 28.1 % (8-40); MCH 32.1 pg (25.7-33.7); MCHC 34.2 g/dl (32.0-36.0); MEAN CELL VOLUME 93.7 fl (80-96); MEAN PLT VOLUME 8.3 fl (7.5-11.1); MONO % 4.7 % (3.8-10.2); NEUT % 66.4 % (42.8-82.8); PLATELET COUNT 278 10^3/uL (134-434); RBC 3.95 M/mm3 (3.60-5.2); RDW 12.6 % (11.6-15.6); WHITE BLOOD COUNT 11.3 K/mm3 (4.0-10.0)
[2022-03-11] MEDS ORDERED: ACETAMINOPHEN INJECTION 100 ML IVPB ONE (17:03)
[2022-03-11 17:15] LABS: CALCIUM 9.3 mg/dL (8.5-10.1)
[2022-03-11 17:16] LABS: ALBUMIN 3.8 g/dl (3.4-5.0); BLOOD UREA NITROGEN 7.9 mg/dL (7-18)
[2022-03-11 17:19] LABS: CREATININE 0.5 mg/dL (0.55-1.3)
[2022-03-11 17:20] LABS: TOT PROT 7.3 g/dl (6.4-8.2)
[2022-03-11] MEDS ORDERED: IBUPROFEN 600 MG TABLET (FP) PO ONE ×2 (20:42→20:46)
[2022-03-11] MEDS ORDERED: SODIUM CHLORIDE 0.9% 1000 ML INFUS.BAG IV ONE (20:47)
[2022-03-11 23:02] VITALS: BP 110/68; PULSE 78; TEMP 98.2
== END 2022-03-11 23:03 | disposition home or self-care (01) ==
LOC: JER 15:32
PROC: 3E0333Z Introduction of Anti-inflammatory into Peripheral Vein, Percutaneous Approach (ICD-10-PCS; principal; 2022-03-11)
DX: O03.4 Incomplete spontaneous abortion without complication (principal)
CPT/HCPCS: 36415; 76830-TC; 80053; 84702; 85025; 86850; 86900; 86901; 99284-25

== ENCOUNTER 2022-05-05 04:07 | Day surgery (SDC) | payer OTHER ==
[2022-05-04 14:14] VITALS: BMI 21.9
[2022-05-05] MEDS ORDERED: DEXAMETHASONE SOD PHOSPHATE 4 MG/1 ML VIAL ONE (11:55)
[2022-05-05] MEDS ORDERED: MIDAZOLAM HCL 2 MG/2 ML SINGLE DOSE VIAL ONE (11:55)
[2022-05-05] MEDS ORDERED: ONDANSETRON 4 MG/2 ML VIAL ONE (11:55)
[2022-05-05] MEDS ORDERED: PROPOFOL 20 ML ONE (11:55)
[2022-05-05] MEDS ORDERED: LIDOCAINE HCL/PF 2% SDV 5ML VIAL ONE (11:55)
[2022-05-05] MEDS ORDERED: BUPIVACAINE HCL/PF 0.5% (5MG/ML) 10 ML VIAL IJ ONE (14:34)
[2022-05-05] MEDS ORDERED: NEOSTIGMINE METHYLSULFATE 0.5 MG/1 ML - 10 ML MDV ONE (15:04)
[2022-05-05] MEDS ORDERED: GLYCOPYRROLATE 0.2 MG/1 ML VIAL ONE (15:04)
[2022-05-05] MEDS ORDERED: KETOROLAC TROMETHAMINE 30 MG/1 ML VIAL ONE (15:08)
[2022-05-05] MEDS ORDERED: ONDANSETRON 4 MG/2 ML VIAL IVPUSH PRN (15:14)
[2022-05-05] MEDS ORDERED: oxyCODONE HCL 5 MG TABLET PO PRN ×2 (15:14)
[2022-05-05] MEDS ORDERED: LACTATED RINGERS SOLUTION 1,000 ML IV SCH (15:15)
[2022-05-05] MEDS ORDERED: FENTANYL CITRATE/PF 50 MCG/ML VIAL ONE ×3 (15:46→16:20)
[2022-05-05 18:18] VITALS: BP 111/69; PULSE 74; TEMP 97.6
== END 2022-05-05 18:30 | disposition home or self-care (01) ==
LOC: JASU-SURG 04:07
PROVIDERS: ATTEND Student in an Organized Health Care Education/Training Program
PROC: 0UT74ZZ Resection of Bilateral Fallopian Tubes, Percutaneous Endoscopic Approach (ICD-10-PCS; principal; 2022-05-05 13:00)
DX: Z30.2 Encounter for sterilization (principal)
CPT/HCPCS: 81025; 88302-TC; 94760

== ENCOUNTER 2022-07-12 00:02 | Emergency (ER) | payer OTHER ==
[2022-07-12 00:21] VITALS: RESP 18; TEMP 98.2; BMI 21.4
[2022-07-12] MEDS ORDERED: SODIUM CHLORIDE 1,000 ML IV ONE (00:28)
[2022-07-12] MEDS ORDERED: morphine CARPU-JECT 4 MG/1 ML DISP.SYRIN IVPUSH ONE (00:28)
[2022-07-12] MEDS ORDERED: morphine SULFATE 4 MG/ML VIAL ONE (00:44)
[2022-07-12] MEDS ORDERED: KETOROLAC TROMETHAMINE 15 MG/ML VIAL IVPUSH ONE (01:39)
[2022-07-12] MEDS ORDERED: KETOROLAC TROMETHAMINE 15 MG/ML VIAL ONE (01:41)
[2022-07-12 01:50] LABS: BASO % 0.2 % (0-2.0); EOS % 0.5 % (0-4.5); HEMOGLOBIN 13.1 GM/dL (10.7-15.3); LYMPH % 30.1 % (8-40); MCH 30.9 pg (25.7-33.7); MCHC 34.6 g/dl (32.0-36.0); MEAN CELL VOLUME 89.5 fl (80-96); MEAN PLT VOLUME 8.3 fl (7.5-11.1); MONO % 4.5 % (3.8-10.2); NEUT % 64.7 % (42.8-82.8); PLATELET COUNT 225 10^3/uL (134-434); RBC 4.25 M/mm3 (3.60-5.2); RDW 13.3 % (11.6-15.6); WHITE BLOOD COUNT 8.7 K/mm3 (4.0-10.0)
[2022-07-12 01:58] LABS: INR 1.04 (0.83-1.09)
[2022-07-12 02:01] LABS: ACTIVATED PTT 24.4 SECONDS (25.2-36.5)
[2022-07-12 02:13] LABS: CALCIUM 8.9 mg/dL (8.5-10.1)
[2022-07-12 02:14] LABS: ALBUMIN 4.1 g/dl (3.4-5.0)
[2022-07-12 02:17] LABS: CREATININE 0.8 mg/dL (0.55-1.3)
[2022-07-12 02:18] LABS: BILIRUBIN,TOTAL 0.7 mg/dL (0.2-1); TOT PROT 7.4 g/dl (6.4-8.2)
[2022-07-12 06:06] VITALS: BP 96/50; PULSE 94
[2022-07-12 06:28] LABS: EPI CELLS 14 /uL (0-25.1); HYALINE CASTS 3 /uL (0-3.1); PH,URINE 5.5 (5.0-8.0); URINE APPEARANCE CLEAR; URINE BACTERIA 19 /uL (0-1359); URINE BILIRUBIN NEGATIVE (NEGATIVE); URINE COLOR YELLOW; URINE GLUCOSE (UA) NEGATIVE (NEGATIVE); URINE KETONE NEGATIVE (NEGATIVE); URINE LEUK ESTERASE NEGATIVE (NEGATIVE); URINE NITRITE NEGATIVE (NEGATIVE); URINE PROTEIN NEGATIVE (NEGATIVE); URINE RBC 9 /uL (0-23.9); URINE UROBILINOGEN 0.2 mg/dL (0.2-1.0); URINE WBC 13 /uL (0-25.8)
[2022-07-12 06:29] LABS: HCG,QUALITATIVE URINE Negative
== END 2022-07-12 06:48 | disposition home or self-care (01) ==
LOC: JER 00:02
PROC: 3E033NZ Introduction of Analgesics, Hypnotics, Sedatives into Peripheral Vein, Percutaneous Approach (ICD-10-PCS; principal; 2022-07-12)
PROC: 3E0333Z Introduction of Anti-inflammatory into Peripheral Vein, Percutaneous Approach (ICD-10-PCS; 2022-07-12)
PROC: 3E0337Z Introduction of Electrolytic and Water Balance Substance into Peripheral Vein, Percutaneous Approach (ICD-10-PCS; 2022-07-12)
DX: N20.0 Calculus of kidney (principal)
CPT/HCPCS: 36415; 74176-TC; 76830-TC; 80053; 81003; 84703; 85025; 85610; 85730; 86850; 86900; 86901; 99285-25

== ENCOUNTER 2024-03-13 18:37 | Emergency (ER) | payer OTHER ==
[2024-03-13 18:53] VITALS: RESP 18; BMI 22.0
[2024-03-13] MEDS ORDERED: ACETAMINOPHEN INJECTION 100 ML IVPB ONE (20:01)
[2024-03-13] MEDS ORDERED: ONDANSETRON 4 MG/2 ML VIAL ONE (20:01)
[2024-03-13] MEDS: ACETAMINOPHEN 1000 MG/100 ML BAG IVPB ONE (20:13)
[2024-03-13] MEDS: ONDANSETRON 4 MG/2 ML VIAL IVPUSH ONE (20:13)
[2024-03-13] MEDS: SODIUM CHLORIDE 0.9% 500 ML INFUS.BAG IV ONE (20:13)
[2024-03-13 20:26] LABS: BASO % 0.4 % (0-2.0); EOS % 0.1 % (0-4.5); HEMATOCRIT 37.9 % (32.4-45.2); HEMOGLOBIN 12.9 GM/dL (10.7-15.3); LYMPH % 14.7 % (8-40); MCH 31.9 pg (25.7-33.7); MCHC 33.9 g/dl (32.0-36.0); MEAN CELL VOLUME 93.9 fl (80-96); MEAN PLT VOLUME 8.1 fl (7.5-11.1); MONO % 3.3 % (3.8-10.2); NEUT % 81.5 % (42.8-82.8); PLATELET COUNT 238 10^3/uL (134-434); RBC 4.04 M/mm3 (3.60-5.2); RDW 12.6 % (11.6-15.6); WHITE BLOOD COUNT 11.2 K/mm3 (4.0-10.0)
[2024-03-13] MEDS: morphine CARPU-JECT 2 MG/1 ML DISP.SYRIN IVPUSH ONE ×2 (20:36→22:28)
[2024-03-13 20:47] LABS: POTASSIUM 3.7 mmol/L (3.5-5.1)
[2024-03-13 20:49] LABS: ALBUMIN 4.2 g/dl (3.4-5.0); CALCIUM 8.9 mg/dL (8.5-10.1)
[2024-03-13 20:53] LABS: CREATININE 0.8 mg/dL (0.55-1.3)
[2024-03-13 20:54] LABS: BILIRUBIN,TOTAL 0.6 mg/dL (0.2-1); TOT PROT 7.5 g/dl (6.4-8.2)
[2024-03-13] MEDS ORDERED: KETOROLAC TROMETHAMINE 30 MG/1 ML VIAL ONE (21:09)
[2024-03-13] MEDS: KETOROLAC TROMETHAMINE 30 MG/1 ML VIAL IVPUSH ONE (21:11)
[2024-03-13 21:56] LABS: EPI CELLS 11 /uL (0-25.1); HYALINE CASTS 0 /uL (0-3.1); PH,URINE 6.5 (5.0-8.0); URINE APPEARANCE CLEAR; URINE BACTERIA 191 /uL (0-1359); URINE BILIRUBIN NEGATIVE (NEGATIVE); URINE COLOR YELLOW; URINE GLUCOSE (UA) NEGATIVE (NEGATIVE); URINE KETONE 1+ (NEGATIVE); URINE LEUK ESTERASE NEGATIVE (NEGATIVE); URINE NITRITE NEGATIVE (NEGATIVE); URINE PROTEIN NEGATIVE (NEGATIVE); URINE RBC 11 /uL (0-23.9); URINE UROBILINOGEN 0.2 mg/dL (0.2-1.0); URINE WBC 22 /uL (0-25.8)
[2024-03-13] MEDS ORDERED: TAMSULOSIN HCL 0.4 MG CAP ONE (22:20)
[2024-03-13] MEDS ORDERED: CEFTRIAXONE 1 GM/50 ML BAG ONE (22:20)
[2024-03-13] MEDS: TAMSULOSIN HCL 0.4 MG CAP PO ONE (22:28)
[2024-03-13] MEDS: CEFTRIAXONE 1 GM in DEXTROSE 5%-WATER - 100 ML IVPB ONE (22:28)
[2024-03-13 23:00] VITALS: BP 115/63; PULSE 88; TEMP 98.2
== END 2024-03-13 23:06 | disposition home or self-care (01) ==
LOC: JER 18:37
PROC: 3E03329 Introduction of Other Anti-infective into Peripheral Vein, Percutaneous Approach (ICD-10-PCS; principal; 2024-03-13)
PROC: 3E030NZ Introduction of Analgesics, Hypnotics, Sedatives into Peripheral Vein, Open Approach (ICD-10-PCS; 2024-03-13)
PROC: 3E0303Z Introduction of Anti-inflammatory into Peripheral Vein, Open Approach (ICD-10-PCS; 2024-03-13)
PROC: 3E030GC Introduction of Other Therapeutic Substance into Peripheral Vein, Open Approach (ICD-10-PCS; 2024-03-13)
PROC: 3E030GC Introduction of Other Therapeutic Substance into Peripheral Vein, Open Approach (ICD-10-PCS; 2024-03-13)
PROC: 3E030GC Introduction of Other Therapeutic Substance into Peripheral Vein, Open Approach (ICD-10-PCS; 2024-03-13)
DX: N13.2 Hydronephrosis with renal and ureteral calculous obstruction (principal); R10.9 Unspecified abdominal pain
CPT/HCPCS: 36415; 74176-TC; 80053; 81003; 83690; 84703; 85025; 87086; 96365; 96375; 96376; 99284-25; J0131